=== PATIENT | female | born 1990 | race Caucasian/White ===

== ENCOUNTER 2022-04-23 15:00 | Emergency (ER) | payer MEDICAID ==
[~2022-04-23] VITALS: Ht 172.7 cm; Wt 104.0 kg
[~2022-04-23 15:00] MED LIST: NO HOME MEDS
[2022-04-23 15:37] VITALS: BP 160/106
[2022-04-23] MEDS ORDERED: NAPR-56 PO (16:19)
[2022-04-23] MEDS ORDERED: ORPH100T2 PO (16:19)
[2022-04-23] MEDS: orphenadrine citrate 60mg/2ml inj. IM ONE (16:44)
[2022-04-23] MEDS: ketorolac trometh inj. 60 MG/2 ML VIAL IM ONE (16:44)
== END 2022-04-23 17:03 | disposition home or self-care (01) ==
LOC: ER 15:01
DX: S13.4XXA Sprain of ligaments of cervical spine, initial encounter (principal); Z79.899 Other long term (current) drug therapy; V89.2XXA Person injured in unspecified motor-vehicle accident, traffic, initial encounter; Y93.89 Activity, other specified; Y92.488 Other paved roadways as the place of occurrence of the external cause; Y99.8 Other external cause status
CPT/HCPCS: 96372; 99284; J1885; J2360; L0172

== ENCOUNTER 2023-05-11 21:44 | Emergency (ER) | payer MEDICAID ==
[~2023-05-11] VITALS: Ht 172.7 cm; Wt 118.2 kg
[~2023-05-11 21:44] MED LIST changes: +ORPH100T4 PO
[2023-05-11 22:09] VITALS: BP 144/103; PULSE 100; TEMP 98.4; O2SAT 97
[2023-05-11] MEDS ORDERED: LIDOcaine 1%/PF 5ML 10 MG/ML VIAL IM STA (22:18)
[2023-05-11] MEDS ORDERED: HYDROcodone/acetaminophen 5mg/325mg tablet PO ONE (22:20)
[2023-05-11] MEDS ORDERED: AMOX-117 PO (22:36)
[2023-05-11 23:09] VITALS: RESP 16
== END 2023-05-11 23:28 | disposition home or self-care (01) ==
LOC: ER 21:44
DX: K02.9 Dental caries, unspecified (principal)
CPT/HCPCS: 64400; 99284

== ENCOUNTER 2023-06-06 12:56 | Emergency (ER) | payer MEDICAID ==
[~2023-06-06] VITALS: Ht 172.7 cm; Wt 121.2 kg
[2023-06-06] MEDS ORDERED: NAPR-56 PO (13:50)
[2023-06-06] MEDS ORDERED: ketorolac trometh inj. 60 MG/2 ML VIAL IM ONE (13:50)
[2023-06-06] MEDS ORDERED: DOXY-1 PO (13:50)
[2023-06-06] MEDS ORDERED: ketorolac trometh. 30mg/ml inj. IM ONE (14:10)
[2023-06-06 14:28] VITALS: BP 170/112; PULSE 99; RESP 16; TEMP 98.3; O2SAT 95
== END 2023-06-06 14:30 | disposition home or self-care (01) ==
LOC: ER 12:57
DX: K04.7 Periapical abscess without sinus (principal); Z79.899 Other long term (current) drug therapy
CPT/HCPCS: 96372; 99283; J1885

== ENCOUNTER 2024-07-27 13:52 | Emergency (ER) | payer MEDICAID ==
[~2024-07-27] VITALS: Ht 172.7 cm; Wt 122.7 kg
[2024-07-27 14:04] VITALS: BP 158/98; PULSE 101; RESP 18; TEMP 97.7; O2SAT 96
[2024-07-27] MEDS ORDERED: LORA-269 PO (15:21)
[2024-07-27] MEDS ORDERED: VENL150T3 PO (15:21)
== END 2024-07-27 15:35 | disposition home or self-care (01) ==
LOC: ER 13:52
DX: F32.A Depression, unspecified (principal); F41.9 Anxiety disorder, unspecified; Z76.0 Encounter for issue of repeat prescription
CPT/HCPCS: 99281

== ENCOUNTER 2024-08-21 16:39 | Emergency (ER) | payer MEDICAID ==
[~2024-08-21] VITALS: Ht 172.7 cm; Wt 125.4 kg
[~2024-08-21 16:39] MED LIST changes: +LORA-269 PO; +VENL150T3 PO
[2024-08-21 16:40] VITALS: BP 163/144; PULSE 78; O2SAT 98
[2024-08-21] MEDS ORDERED: IBUP-1984 PO (17:06)
[2024-08-21] MEDS ORDERED: PENI500T2 PO (17:06)
[2024-08-21] MEDS ORDERED: HYDR-3965 PO (17:07)
[2024-08-21] MEDS: ibuprofen tablet 400 MG TABLET PO ONE (17:08)
[2024-08-21 17:09] VITALS: RESP 19
[2024-08-21] MEDS: HYDROcodone/acetaminophen 5mg/325mg tablet PO ONE (17:09)
[2024-08-21 17:21] VITALS: TEMP 98.6
== END 2024-08-21 17:15 | disposition home or self-care (01) ==
LOC: ER 16:39
DX: K04.01 Reversible pulpitis (principal); K08.89 Other specified disorders of teeth and supporting structures; Z79.1 Long term (current) use of non-steroidal anti-inflammatories (NSAID); Z79.899 Other long term (current) drug therapy
CPT/HCPCS: 99283

== ENCOUNTER 2024-09-06 15:20 | Emergency (ER) | payer MEDICAID ==
[~2024-09-06] VITALS: Ht 170.2 cm; Wt 125.0 kg
[~2024-09-06 15:20] MED LIST changes: +HYDR-3965 PO
[2024-09-06] MEDS: HYDROcodone/acetaminophen 10/325mg tab PO STA (15:58)
[2024-09-07 02:32] VITALS: BP 147/92; PULSE 88; RESP 18; TEMP 97.7; O2SAT 98
== END 2024-09-06 17:25 | disposition home or self-care (01) ==
LOC: ER 15:20
DX: M25.531 Pain in right wrist (principal); M54.59 Other low back pain; Z79.899 Other long term (current) drug therapy; W01.0XXA Fall on same level from slipping, tripping and stumbling without subsequent striking against object, initial encounter; Y93.89 Activity, other specified; Y92.89 Other specified places as the place of occurrence of the external cause; Y99.8 Other external cause status
CPT/HCPCS: 72070; 72100; 73110; 99284

== ENCOUNTER 2025-01-10 20:10 | Emergency (ER) | payer MEDICAID ==
[~2025-01-10] VITALS: Ht 170.2 cm; Wt 107.5 kg
[~2025-01-10 20:10] MED LIST changes: -HYDR-3965 PO
[2025-01-10 20:30] VITALS: BP 135/65; PULSE 94; RESP 15; TEMP 96.3; O2SAT 99
--- NOTE | 2025-01-10 20:53 | RADIOLOGY REPORT ---
CLINICAL INDICATION: Finger Pain TECHNIQUE: 3 views left fingers DI FINGER(S) Comparison: DI WRIST, COMPLETE (3VW MIN) on DOS: 09/06/24 FINDINGS/IMPRESSION: : No acute fracture or joint malalignment. No significant degenerative changes. Metallic ring on the 4t h digit. Soft tissue swelling and evidence of elevation of the distal finger nail of the small finger.
== END 2025-01-10 23:51 | disposition left against medical advice (07) ==
LOC: ER 20:10
DX: M79.645 Pain in left finger(s) (principal); Z53.21 Procedure and treatment not carried out due to patient leaving prior to being seen by health care provider
CPT/HCPCS: 73140

== ENCOUNTER 2025-02-10 10:25 | Emergency (ER) | payer MEDICAID ==
[~2025-02-10] VITALS: Ht 170.2 cm; Wt 121.0 kg
[2025-02-10 10:52] VITALS: BP 132/101; PULSE 90; O2SAT 98
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
--- NOTE | 2025-02-10 11:17 | RADIOLOGY REPORT ---
Indication: HAND PAIN Technique: DI HAND, COMPLETE (3VW MIN)HAND 3VW Comparison: None FINDINGS/IMPRESSION: Comminuted fracture 5th proximal phalanx with proximal articular extension. Surrounding soft tissue edema. [id number] degenerative changes of the PIP, d IP joints.
[2025-02-10 12:19] VITALS: RESP 16
[2025-02-10] MEDS: HYDROcodone/acetaminophen 10/325mg tab PO ONE (12:19)
[2025-02-10] MEDS ORDERED: HYDR-3965 PO (12:43)
[2025-02-10 13:12] VITALS: TEMP 97
== END 2025-02-10 13:19 | disposition home or self-care (01) ==
LOC: ER 10:25
DX: S62.618A Displaced fracture of proximal phalanx of other finger, initial encounter for closed fracture (principal); Z79.899 Other long term (current) drug therapy; Y08.89XA Assault by other specified means, initial encounter; Y93.89 Activity, other specified; Y92.89 Other specified places as the place of occurrence of the external cause; Y99.8 Other external cause status
CPT/HCPCS: 29130; 73130; 99283